=== PATIENT | male | born 1965 ===

== ENCOUNTER 2016-08-07 13:26 | Emergency (ER) | payer OTHER ==
[2016-08-07] MEDS ORDERED: Sodium Chloride 0.9% 1,000 ML IV STA (13:41)
--- NOTE | 2016-08-07 13:55 | ED PDOC ---
HPI: Abdomen Time Seen by Provider: 08/07/16 13:37 Chief Complaint (Nursing): Abdominal Pain Past Medical History Vital Signs: Last Vital Signs Temp 97.8 F 08/07/16 13:33 Pulse 62 08/07/16 13:33 Resp 20 08/07/16 13:33 BP 154/118 H 08/07/16 13:33 Pulse Ox 100 08/07/16 13:33 - Medical History PMH: HTN - Immunization History Hx Tetanus Toxoid Vaccination: No Hx Influenza Vaccination: No Hx Pneumococcal Vaccination: No - Allergies Allergies/Adverse Reactions: Allergies Allergy/AdvReac Type Severity Reaction Status Date / Time No Known Allergies Allergy Verified 08/07/16 13:30 Review of Systems ROS Statement: Except As Marked, All Systems Reviewed And Found Negative Constitutional: Positive for: Other (Body aches) Gastrointestinal: Positive for: Nausea, Abdominal Pain. Negative for: Vomiting Psych: Positive for: Anxiety Physical Exam - Reviewed Nursing Documentation Reviewed: Yes Vital Signs Reviewed: Yes - Physical Exam Appears: Positive for: Non-toxic, No Acute Distress Head Exam: Positive for: ATRAUMATIC, NORMOCEPHALIC Skin: Positive for: Normal Color, Warm, Dry Neck: Positive for: Normal, Supple Cardiovascular/Chest: Positive for: Regular Rate, Rhythm. Negative for: Murmur Respiratory: Positive for: Normal Breath Sounds. Negative for: Accessory Muscle Use, Respiratory Distress Gastrointestinal/Abdominal: Positive for: Normal Exam, Soft. Negative for: Tenderness Extremity: Positive for: Normal ROM. Negative for: Pedal Edema Neurologic/Psych: Positive for: Alert, Oriented (x3). Negative for: Other (no tremors or deficits) - ECG O2 Sat by Pulse Oximetry: 100 (Ra) Pulse Ox Interpretation: Normal Medical Decision Making Medical Decision Making: Time: 13:37 Initial impression: Withdrawal status post substance use Initial plan: --Electrocardiogram Stat --Alcohol Serum Stat --COMP Metabolic Panel --Drug Screen, Urine Stat --ED Urine dipstick (POC) --EKG-ED (EDNURTX) Stat --CBC w/ differential --Catapres 0.1 mg PO --Benadryl 50 mg PO --Sodium chloride 1,000 ml IV 100 mls/hr --Zofran Inj 4 mg IVP --Revaluation Scribe Attestation: Documented by Louise Hensley, acting as a scribe for Nehemias Pearson MD. Provider Scribe Attestation: All medical record entries made by the Scribe were at my direction and personally dictated by me. I have reviewed the chart and agree that the record accurately reflects my personal performance of the history, physical exam, medical decision making, and the department course for this patient. I have also personally directed, reviewed, and agree with the discharge instructions and disposition. Disposition - Disposition Referrals: FAMILY PROVIDER,NO [Primary Care Provider] -
--- NOTE | 2016-08-07 14:05 | ED PDOC ---
HPI: General Adult Time Seen by Provider: 08/07/16 13:37 Chief Complaint (Nursing): Abdominal Pain Chief Complaint (Provider): Abdominal Pain History Per: Patient History/Exam Limitations: no limitations Onset/Duration Of Symptoms: Days Current Symptoms Are (Timing): Still Present Additional Complaint(s): 51 y/o male with a past medical history of asthma presents to the emergency department with a complaint of anxiety, nausea, body aches since last night, . 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 Last use was yesterday morning; uses daily by snorting. Denies other drug use, alcohol ingestion, or vomiting. Past Medical History Reviewed: Historical Data, Nursing Documentation, Vital Signs Vital Signs: Last Vital Signs Temp 97.8 F 08/07/16 13:33 Pulse 56 L 08/07/16 14:10 Resp 17 08/07/16 14:10 BP 198/111 H 08/07/16 14:10 Pulse Ox 100 08/07/16 14:37 - Medical History PMH: HTN - Surgical History Surgical History: No Surg Hx - Family History Family History: States: Unknown Family Hx - Social History Current smoker - smoking cessation education provided: Yes (Heavy smoker >10 cigarettes daily) Alcohol: None Drugs: Other (Heroin) - Immunization History Hx Tetanus Toxoid Vaccination: No Hx Influenza Vaccination: No Hx Pneumococcal Vaccination: No - Allergies Allergies/Adverse Reactions: Allergies Allergy/AdvReac Type Severity Reaction Status Date / Time No Known Allergies Allergy Verified 08/07/16 13:30 Review of Systems ROS Statement: Except As Marked, All Systems Reviewed And Found Negative Constitutional: Positive for: Other (Body aches) Gastrointestinal: Positive for: Nausea. Negative for: Vomiting Psych: Positive for: Anxiety Physical Exam - Reviewed Nursing Documentation Reviewed: Yes Vital Signs Reviewed: Yes - Physical Exam Appears: Positive for: Non-toxic, No Acute Distress Skin: Positive for: Normal Color, Warm, Dry ENT: Positive for: Normal ENT Inspection. Negative for: Pharyngeal Erythema Neck: Positive for: Normal, Supple Cardiovascular/Chest: Positive for: Regular Rate, Rhythm. Negative for: Murmur Respiratory: Positive for: Normal Breath Sounds. Negative for: Accessory Muscle Use, Respiratory Distress Gastrointestinal/Abdominal: Positive for: Normal Exam, Soft. Negative for: Tenderness Back: Positive for: Normal Inspection Extremity: Positive for: Normal ROM. Negative for: Pedal Edema Neurologic/Psych: Positive for: Alert, Oriented (x3). Negative for: Other (no tremors or deficits) - Laboratory Results Result Diagrams: 08/07/16 14:00 08/07/16 14:00 - ECG O2 Sat by Pulse Oximetry: 100 (RA) Pulse Ox Interpretation: Normal Medical Decision Making Medical Decision Making: Time: 13:37 Initial impression: Withdrawal status post substance use Initial plan: --Electrocardiogram Stat --Alcohol Serum Stat --COMP Metabolic Panel --Drug Screen, Urine Stat --ED Urine dipstick (POC) --EKG-ED (EDNURTX) Stat --CBC w/ differential --Catapres 0.1 mg PO --Benadryl 50 mg PO --Sodium chloride 1,000 ml IV 100 mls/hr --Zofran Inj 4 mg IVP --Revaluation Scribe Attestation: Documented by Louise Hensley, acting as a scribe for Nehemias Pearson MD. Provider Scribe Attestation: All medical record entries made by the Scribe were at my direction and personally dictated by me. I have reviewed the chart and agree that the record accurately reflects my personal performance of the history, physical exam, medical decision making, and the department course for this patient. I have also personally directed, reviewed, and agree with the discharge instructions and disposition. Disposition - Clinical Impression Clinical Impression: Opioid withdrawal - Patient ED Disposition Is Patient to be Admitted: Transfer of Care - Disposition Referrals: FAMILY PROVIDER,NO [Primary Care Provider] - Disposition: Transfer of Care Disposition Time: 14:59 Condition: FAIR Patient Signed Over To: Elke Howell
[2016-08-07 14:14] LABS: BASO # 0.1 K/uL (0.0-0.2); BASO % 0.9 % (0.0-2.0); EOS % 0.1 % (0.0-4.0); LYMPH # 1.5 K/uL (1.0-4.3); LYMPH % 14.5 % (20.0-40.0); MEAN CELL VOLUME 90.3 fl (80.0-94.0); MEAN CORPUSCULAR HGB CONC 34.4 g/dL (33.0-37.0); MEAN PLATELET VOLUME 8.2 fl (7.2-11.7); MONO # 0.4 K/uL (0.0-0.8); MONO % 3.9 % (0.0-10.0); NEUT # 8.1 K/uL (1.8-7.0); NEUT % 80.6 % (50.0-75.0); RED CELL DISTRIBUTION WIDTH 12.8 % (11.5-14.5); WHITE BLOOD COUNT 10.1 K/uL (4.8-10.8)
[2016-08-07 14:35] LABS: ALB/GLOB RATIO 1.3 (1.0-2.1); ALCOHOL SERUM < 10 mg/dl (0-10); ALKALINE PHOSPHATASE 69 U/L (38-126); ALT/SGPT 38 U/L (21-72); AST/SGOT 33 U/L (17-59); BILIRUBIN,TOTAL 0.8 mg/dl (0.2-1.3); BLOOD UREA NITROGEN 14 mg/dl (9-20); CALCIUM 10.1 mg/dL (8.4-10.2); CARBON DIOXIDE 26 mmol/L (22-30); CHLORIDE 101 mmol/L (98-107); GFR AFRICAN-AMERICAN > 60; GLUCOSE,RANDOM 108 mg/dL (75-110); POTASSIUM 3.8 MMOL/L (3.6-5.0); SODIUM 138 mmol/l (132-148); TOTAL PROTEIN 8.5 G/DL (6.3-8.2)
[2016-08-07 14:37] VITALS: O2SAT 100
--- NOTE | 2016-08-07 15:13 | ED PDOC ---
- Laboratory Results Result Diagrams: 08/07/16 14:00 08/07/16 14:00 - ECG O2 Sat by Pulse Oximetry: 100 (RA) Pulse Ox Interpretation: Normal Medical Decision Making Medical Decision Making: Time: 1500 Patient is pending ER work-up, reassessment and final disposition. 1830 Pt's bp decreased. Pt stable for DC. Disposition - Clinical Impression Clinical Impression: Opioid withdrawal - POA Present On Arrival: None - Disposition Referrals: [facility] [Outside] [facility] [Outside] [facility] [Outside] Disposition: Routine/Home Disposition Time: 18:46 Condition: IMPROVED Prescriptions: hydrOXYzine Pamoate [Vistaril] 25 mg PO BID PRN #20 cap PRN Reason: Insomnia Ondansetron [Zofran] 4 mg PO Q8H PRN #30 tab PRN Reason: Nausea/Vomiting Instructions: Opioid Dependence (ED), Opioid Withdrawal (ED)
[2016-08-07 17:20] VITALS: BP 175/95; PULSE 74; RESP 18; TEMP 98.3
--- NOTE | 2016-08-08 00:17 | CARD ---
APPROVED REPORT EKG Measurement Heart [id number] CT [id number] <Conclusion> Sinus bradycardia with premature atrial complexes Voltage criteria for left ventricular hypertrophy Abnormal ECG
== END 2016-08-07 18:52 | disposition home or self-care (01) ==
LOC: H.ER 13:26
DX: F11.23 Opioid dependence with withdrawal (principal); F41.9 Anxiety disorder, unspecified; R11.0 Nausea; I10 Essential (primary) hypertension; I49.1 Atrial premature depolarization; R00.1 Bradycardia, unspecified

== ENCOUNTER 2017-06-20 20:57 | Emergency (ER) | payer OTHER ==
--- NOTE | 2017-06-20 22:57 | ED PDOC ---
HPI: Dental Pain/Injury Time Seen by Provider: 06/20/17 22:36 Chief Complaint (Nursing): Dental Pain Chief Complaint (Provider): Toothache History Per: Patient History/Exam Limitations: no limitations Onset/Duration Of Symptoms: Days Current Symptoms Are (Timing): Still Present Additional Complaint(s): Patient is a 52 year old male who reports swelling to right lower jaw, associated with dental pain since yesterday morning. Patient has an upcoming dental appt 06/22/17 and was seen last week by a dentist for a preliminary exam for a tooth extraction, but was not started on any medications at that time. Patient states he has been taking Ibuprofen 600mg at home, last dose at 5pm tonight. Patient states the affected tooth has been cracked for years, however never caused problems until now. Otherwise: (-) fever (-) chills (-) drooling (- ) cough (-) SOB (-) abdominal pain (-) chest pain (-) throat pain (-) ear pain. 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 per patient) - Home Medications Home Medications: Ambulatory Orders Medication Instructions Recorded Ondansetron [Zofran] 4 mg PO Q8H PRN #30 tab 08/07/16 hydrOXYzine Pamoate [Vistaril] 25 mg PO BID PRN #20 cap 08/07/16 Amoxicillin/Clavulanate [Augmentin 1 tab PO BID #14 tab 06/21/17 875 MG-125 MG] Ibuprofen [Motrin Tab] 800 mg PO Q8 PRN #24 tab 06/21/17 - Allergies Allergies/Adverse Reactions: Allergies Allergy/AdvReac Type Severity Reaction Status Date / Time No Known Allergies Allergy Verified 08/07/16 13:30 Review of Systems ROS Statement: Except As Marked, All Systems Reviewed And Found Negative ENT: Positive for: Other (dental pain) Physical Exam - Reviewed Nursing Documentation Reviewed: Yes Vital Signs Reviewed: Yes - Physical Exam Appears: Positive for: Well, Non-toxic, Uncomfortable Head Exam: Positive for: ATRAUMATIC, NORMOCEPHALIC Skin: Positive for: Normal Color, Warm, Dry Eye Exam: Positive for: EOMI, PERRL ENT: Positive for: Pharynx Is (clear, uvula midline), Other (cracked right lower 1st molar (+) tenderness (+) gum swelling and tenderness (-) fluctuance (- ) pus drainage (+) poor dentition throughout (-) drooling). Negative for: Pharyngeal Erythema, Tonsillar Exudate Neck: Positive for: Painless ROM, Supple Cardiovascular/Chest: Positive for: Regular Rate, Rhythm Respiratory: Positive for: Normal Breath Sounds (speaking in full sentences, respirations even and nonlabored.). Negative for: Decreased Breath Sounds, Accessory Muscle Use, Stridor, Respiratory Distress Neurologic/Psych: Positive for: Alert, Oriented (x3), Gait (steady in ED) - ECG O2 Sat by Pulse Oximetry: 99 (RA) Pulse Ox Interpretation: Normal Medical Decision Making Medical Decision Making: Clinical Impression: Dental pain, cracked tooth, dental infection Plan: -Toradol IM -Augmentin PO -Tylenol PO -Repeat vitals. Patient with elevated BP in ED but states it always increases with pain. Patient reports he is compliant with his medication at home. Denies any complaints in relation to his elevated BP, including but not limited to headache, dizziness, palpitations, chest pain, SOB. DASH diet encouraged. 0040 On re-evaluation, patient reports improvement of symptoms. On exam, patient remains AAOx3, in no acute distress. Lungs clear to auscultation, cardiac RRR, abdomen soft, non-tender, repeat neuro exam shows no focal findings. No evidence of respiratory distress or airway compromise. Repeat BP: 153/99. Repeat HR:63. Diagnostic results d/w the patient in great detail. Diagnosis of toothache, dental infection d/w the patient. Based on history, exam and diagnostic results, plan will be for outpatient follow up with dentist. Patient instructed to follow-up with pmd / referral provided / the clinic in 1- 2 days without fail. Advised to take medication as prescribed. Return to the emergency room at any time for any new or worsening symptoms. Patient states he fully agrees with and understands discharge instructions. States that he agrees with the plan and disposition. Verbalized and repeated discharge instructions and plan. I have given the patient opportunity to ask any additional questions. Disposition - Clinical Impression Clinical Impression: Cracked tooth, Pain, dental, Dental infection, Elevated blood pressure reading - Patient ED Disposition Is Patient to be Admitted: No Counseled Patient/Family Regarding: Diagnosis, Need For Followup, Rx Given - Disposition Disposition: Routine/Home Disposition Time: 00:40 Condition: STABLE Additional Instructions: FOLLOW UP WITH DENTIST PLANNED. RETURN TO ED WITH ANY NEW OR WORSENING SYMPTOMS. Prescriptions: Amoxicillin/Clavulanate [Augmentin 875 MG-125 MG] 1 tab PO BID #14 tab Ibuprofen [Motrin Tab] 800 mg PO Q8 PRN #24 tab PRN Reason: Pain, Moderate (4-7) Instructions: High Blood Pressure in Adults, Tooth Abscess (DC), Fractured Tooth, Dental Pain, Hypertension (ED) Forms: [employer] (Maori) Print Language: SLOVENIAN - POA Present On Arrival: None
[2017-06-20] MEDS ORDERED: Amoxicillin-Clav 875-125 mg Tab PO STA (23:10)
[2017-06-20] MEDS ORDERED: Amoxicillin-Clav 875-125 mg Tab PO ONE (23:23)
[2017-06-21 00:10] VITALS: BP 153/99; PULSE 63; RESP 16; TEMP 98.5
[2017-06-21 00:43] VITALS: O2SAT 99
== END 2017-06-21 01:00 | disposition home or self-care (01) ==
LOC: H.ER 20:57
DX: K03.81 Cracked tooth (principal); I10 Essential (primary) hypertension
CPT/HCPCS: 96372; 99284; J1885